=== PATIENT | male | born 1975 | race Caucasian/White ===

== ENCOUNTER 2018-05-02 09:57 | Day surgery (SDC) | payer BC ==
[~2018-05-02 09:57] MED LIST: CEFAZOLIN 2 GM/D5W RTU 2 GM/50 ML RTUPB IV PRN; LACTATED RINGERS 1000 ML IV PRN; LIDOCAINE 0.5% INJ-PF (5 MG/ML) 50 ML SDV SUBCUT PRN
[2018-05-02] MEDS ORDERED: BUPIVACAINE HCL 0.25 % INJ/PF (2.5 MG/1 ML) 30 ML VIAL ONE (10:56)
[2018-05-02] MEDS ORDERED: LIDOCAINE 1% INJ-PF (10 MG/ML) 30 ML SDV ONE (10:56)
[2018-05-02] MEDS ORDERED: FAMOTIDINE INJ/PF 20 MG/2 ML SDV IV ONE (11:24)
[2018-05-02] MEDS ORDERED: ALBUTEROL SULFATE 0.083% NEB 2.5 MG/3 ML AMPUL NEB ONE (11:28)
[2018-05-02] MEDS ORDERED: FENTANYL CITRATE INJ/PF 100 MCG/2 ML AMPUL ONE (12:59)
[2018-05-02] MEDS ORDERED: LIDOCAINE 2% INJ-PF (20 MG/ML) 10 ML AMPUL ONE (12:59)
[2018-05-02] MEDS ORDERED: MIDAZOLAM 2 MG/2 ML INJ ONE (13:00)
[2018-05-02] MEDS ORDERED: DEXAMETHASONE SOD PHOSPHATE INJ 4 MG/1 ML VIAL ONE (13:00)
[2018-05-02] MEDS ORDERED: PROPOFOL INJ 200 MG/20 ML VIAL IV ONE ×2 (13:00→14:29)
[2018-05-02] MEDS ORDERED: MORPHINE SULFATE 10 MG/ML INJ IV PRN (14:38)
[2018-05-02] MEDS ORDERED: PROMETHAZINE HCL INJ 25 MG/1 ML VIAL IV PRN ×2 (14:38)
[2018-05-02] MEDS ORDERED: DIPHENHYDRAMINE HCL 50 MG/ML VIAL IV PRN (14:38)
[2018-05-02] MEDS ORDERED: ONDANSETRON HCL INJ/PF 4 MG/2 ML SDV IV PRN (14:38)
[2018-05-02] MEDS ORDERED: MEPERIDINE HCL/PF INJ 25 MG/1 ML DISP.SYRIN IV PRN (14:38)
[2018-05-02] MEDS ORDERED: FENTANYL CITRATE INJ/PF 100 MCG/2 ML AMPUL IV PRN ×3 (14:38)
[2018-05-02] MEDS ORDERED: ACETAMINOPHEN 1,000 MG/100 ML RTUPB IV ONE (15:35)
--- NOTE | 2018-05-02 15:48 | Discharge Summary ---
Discharge Summary (SDC) - Discharge Final Diagnosis: Back lipoma Date of Surgery: 05/02/18 Discharge Date: 05/02/18 Condition: Stable Referrals: FRANCOISE MILES MD [Primary Care Provider] - Discharge Diet: As Tolerated Respiratory Treatments at Home: Deep Breathing/Coughing, Incentive Spirometer Discharge Activity: Slowly Increase Activity Home Care Assistance: None Needed Report the Following to Your Physician Immediately: Shortness of Breath, Nausea , Vomiting, Increase in Pain, Fever over 101 Degrees, Unusual Bleeding, Swelling , Warmth
--- NOTE | 2018-05-02 15:52 | Operative Report ---
Nonrecallable Operative Report DATE OF SURGERY: 05/02/18 PREOPERATIVE DIAGNOSIS: Back lipoma POSTOPERATIVE DIAGNOSIS: 2 cm back lipoma OPERATION: 1. Excision of a 2 cm back lipoma. 2. Intermediate closure of 3.5 cm back incision. SURGEON: DUC KAUR ANESTHESIA: LMAC TISSUE REMOVED OR ALTERED: 2 cm back lipoma COMPLICATIONS: None apparent ESTIMATED BLOOD LOSS: Minimal PROCEDURE: Drains/implants: None. Procedure in detail: Informed consent was obtained, the patient was laid in the left lateral decubitus position in the operating room. The area of the right back was prepped and draped in a normal sterile fashion. Incision was created over the lipoma. The incision measured 3.5 cm in total diameter. The dissection was carried down through the subcutaneous tissue using sharp dissection. The lipoma was identified and removed from the surrounding tissues. The lipoma measured approximately 2 cm in total diameter. The subcutaneous tissue was closed using 3-0 Vicryl suture in simple running fashion. The overlying skin was closed using 4-0 Vicryl Rapide suture in subcuticular fashion. All sponge, instrument, needle counts were correct 2. Condition: Stable.
[2018-05-02 16:53] VITALS: BP 121/72
--- NOTE | 2018-05-02 21:47 | EKG REPORT ---
SEVERITY:- NORMAL ECG - SINUS RHYTHM : Confirmed by: June Sands MD 02-May-2018 21:46:55
== END 2018-05-02 16:45 | disposition home or self-care (01) ==
LOC: OROUT 09:57
PROVIDERS: ATTEND Surgery
DX: D17.1 Benign lipomatous neoplasm of skin and subcutaneous tissue of trunk (principal); F17.210 Nicotine dependence, cigarettes, uncomplicated; K21.9 Gastro-esophageal reflux disease without esophagitis; Z86.79 Personal history of other diseases of the circulatory system; Z79.899 Other long term (current) drug therapy
CPT/HCPCS: 88304 ×2; 93005; 93010; 21930; J2250; J1100; J3010; J3490 ×2; J2704; S0028; J0690; J0131; 300